=== PATIENT | female | born 1995 ===

== ENCOUNTER → 2020-01-31 | Outpatient (CLI) | payer SELFPAY | END | disposition home or self-care (01) | LOC: LAB SHORT 16:39 → LAB EV 16:39 | DX: Z33.1 Pregnant state, incidental (principal) | CPT/HCPCS: 84702; 86900; 86901 ==

== ENCOUNTER → 2020-03-10 | Outpatient (CLI) | payer OTHER | END | disposition home or self-care (01) | LOC: LAB 14:19 → LAB SHORT 14:19 | PROVIDERS: Advanced Practice Midwife | DX: Z01.419 Encounter for gynecological examination (general) (routine) without abnormal findings (principal) | CPT/HCPCS: G0123 ==

== ENCOUNTER → 2020-05-24 | Outpatient (CLI) | payer OTHER ==
[2020-05-27 12:03] LABS: CHLAMYDIA TRACHOMATIS, NAA Negative (Negative)
== END | disposition home or self-care (01) ==
LOC: LAB 15:53 → LAB SHORT 15:53
PROVIDERS: Advanced Practice Midwife
DX: Z11.3 Encounter for screening for infections with a predominantly sexual mode of transmission (principal)
CPT/HCPCS: 87491; 87591

== ENCOUNTER 2024-01-29 09:08 | Emergency (ER) | payer OTHER ==
[~2024-01-29] VITALS: Ht 144.8 cm; Wt 66.0 kg
[2024-01-29] MEDS ORDERED: ONDA4ODT MM (09:23)
[2024-01-29 09:41] LABS: Source, Urine Clean Catch
[2024-01-29 09:47] LABS: BASOPHILS ABSOLUTE AUTO 0.04 K/mm3 (0.00-0.23); BASOPHILS PERCENT AUTO 1 % (0-2); EOSINOPHILS ABSOLUTE AUTO 0.09 K/mm3 (0.00-0.68); EOSINOPHILS PERCENT AUTO 1 % (0-6); Hematocrit 39.9 % (33.0-51.0); Hemoglobin 13.6 g/dL (11.5-16.0); IMMATURE GRAN ABSOLUTE AUTO 0.03 K/mm3 (0.00-0.10); IMMATURE GRAN PERCENT AUTO 0 % (0-1); LYMPHOCYTES ABSOLUTE AUTO 2.25 K/mm3 (0.84-5.20); LYMPHOCYTES PERCENT AUTO 28 % (21-46); MONOCYTES ABSOLUTE AUTO 0.63 K/mm3 (0.16-1.47); MONOCYTES PERCENT AUTO 8 % (4-13); Mean Corpuscular HGB 29.2 pg (26.0-34.0); Mean Corpuscular HGB Conc 34.1 g/dL (31.5-36.5); Mean Corpuscular Volume 86 fL (80-100); Mean Platelet Volume 10.4 fL (9.1-12.4); NEUTROPHILS ABSOLUTE AUTO 4.98 K/mm3 (1.96-9.15); NEUTROPHILS PERCENT AUTO 62 % (41-73); Platelet Count 229 K/mm3 (150-400); RDW Coefficient Variation 11.7 % (11.7-14.2); RDW Standard Deviation 35.9 fL (35.1-46.3); Red Blood Cell Count 4.66 M/mm3 (3.80-5.20); White Blood Cell Count 8.02 K/mm3 (4.00-11.30)
[2024-01-29 10:09] LABS: Appearance, Urine Clear (Clear); Bilirubin, Urine Neg (Neg); Blood, Urine 3+ (Neg); Glucose Qualitative, Urine Neg (Neg); Ketones, Urine Neg (Neg); Leukocyte Esterase, Urine Neg (Neg); Nitrite, Urine Neg (Neg); Protein, Urine Neg (Neg); Urobilinogen, Urine NORM (Normal)
[2024-01-29 10:09] LABS: Bun/Creatinine Ratio 11.6 (12.0-20.0); Calcium, Blood 8.7 mg/dL (8.5-10.1); Creatinine, Blood 0.52 mg/dL (0.40-1.00); Potassium, Blood 3.5 mmol/L (3.5-5.5)
[2024-01-29 11:04] VITALS: BP 136/78
[2024-01-29] MEDS ORDERED: Acetaminophen 500 MG Tab PO ONE (11:25)
[2024-01-29 11:52] LABS: Color, Urine Yellow (P-Yellow)
[2024-01-29 11:54] LABS: Bacteria Rare /hpf; Squamous Epithelial Cells Rare /hpf (Few); White Blood Cells, Urine 0-2 /hpf (0-5)
[2024-01-29] MEDS ORDERED: ACET500 PO (11:55)
== END 2024-01-29 12:37 | disposition home or self-care (01) ==
LOC: ER 09:08
PROVIDERS: Emergency Medicine
DX: O03.4 Incomplete spontaneous abortion without complication (principal); Z3A.01 Less than 8 weeks gestation of pregnancy
CPT/HCPCS: 76801; 76817; 80048; 81001; 81025; 84702; 84703; 85025; 86900; 86901; 99284-25; A9270

== ENCOUNTER → 2024-02-01 | Outpatient (CLI) | payer OTHER ==
[~2024-02-01] MED LIST: ACET500 PO; ONDA4ODT MM
== END ==
LOC: LAB 18:01 → LAB SHORT 18:01
DX: O36.80X0 Pregnancy with inconclusive fetal viability, not applicable or unspecified (principal)
CPT/HCPCS: 84702

== ENCOUNTER 2024-02-13 12:37 | Day surgery (SDC) | payer OTHER ==
[~2024-02-13] VITALS: Ht 144.8 cm; Wt 66.3 kg
[~2024-02-13 12:37] MED LIST changes: +CeFAZolin Sodium 2,000 MG in NS 100 ML IV SCH; +NS 500 ML IV SCH
--- NOTE | 2024-02-13 13:33 | NUR ---
History, Chart, Medications and Allergies reviewed before start of procedure. Patient confirms NPO status and agrees with scheduled surgery. Pre-Op teaching done. Pt verbalizes understanding. Patient States Post-Procedure ride home has been arranged. Patient confirms NPO status and agrees with scheduled surgery. PT HERE WITH FRIEND THAT SPEAKS [place] WELL. CHARTERED WEALTH MANAGER PHONE USED TO CONFIRM WITH PATIENT THAT SHE FELT COMFORTABLE WITH HER FRIEND TRANSLATING. PER CHARTERED WEALTH MANAGER PT DIDN'T HAVE ANY QUESTIONS REGARDING PROCEDURE AT THIS TIME.
[2024-02-13] MEDS ORDERED: propofoL 20 ML IV ONE (14:15)
[2024-02-13] MEDS ORDERED: FentaNYL Citrate 50 MCG/ML 2 ML Injection ONE (14:15)
[2024-02-13] MEDS ORDERED: Ondansetron HCl 2 MG / ML 2ML Vial ONE (14:28)
[2024-02-13] MEDS ORDERED: Dexamethasone Sod Phos 10 MG/ML 1ML VIAL ONE (14:28)
[2024-02-13] MEDS ORDERED: Ketorolac Tromethamine 30mg Vial ONE (14:28)
[2024-02-13] MEDS ORDERED: Droperidol 5 mg/2 ml Vial IV PRN (14:40)
[2024-02-13] MEDS ORDERED: FentaNYL Citrate 50 MCG/ML 2 ML Injection IV PRN (14:40)
[2024-02-13] MEDS ORDERED: HYDROmorphone HCl/Pf 1MG SYR IV PRN (14:45)
[2024-02-13] MEDS ORDERED: Albuterol 2.5 MG/3 ML VIAL INH PRN (14:50)
[2024-02-13 15:00] VITALS: BP 93/48
[2024-02-13 15:05] VITALS: BP 92/56
[2024-02-13 15:10] VITALS: BP 97/61
[2024-02-13 15:15] VITALS: BP 106/70
[2024-02-13 15:26] VITALS: BP 121/76
[2024-02-13] MEDS ORDERED: OxyCODONE 5 mg/Acetamin 325 mg TABLET PO PRN (15:40)
[2024-02-13] MEDS ORDERED: Ibuprofen 400 MG Tab PO PRN (15:40)
[2024-02-13 15:45] VITALS: BP 112/83
--- NOTE | 2024-02-13 16:05 | NUR ---
Discharge instructions reviewed with patient. Patient verbalizes understanding. Copy given to patient to take home. Scant bleeding on marissa-pad. Prescriptions called into [facility]. Remaining LR admistered. Patient States Post-Procedure ride home has been arranged. Discharged via wheelchair to private car for ride home.
== END 2024-02-13 16:09 | disposition home or self-care (01) ==
LOC: ORSCMMR 12:37 → ORSCSDS 14:00 → ORSCMMR 14:00 → ORD 14:00 → ORSCMMR 16:09
PROVIDERS: Obstetrics & Gynecology
PROC: 10D17ZZ Extraction of Products of Conception, Retained, Via Natural or Artificial Opening (ICD-10-PCS; principal; 2024-02-13 14:00)
DX: O02.1 Missed abortion (principal)
CPT/HCPCS: 86850; 86900; 86901; 88305; J0690; J1100; J1885; J2405; J2704; J3010; J7040

== ENCOUNTER 2024-07-14 10:40 | Emergency (ER) | payer OTHER ==
[~2024-07-14] VITALS: Ht 149.9 cm; Wt 63.5 kg
[~2024-07-14 10:40] MED LIST changes: -CeFAZolin Sodium 2,000 MG in NS 100 ML IV SCH; -NS 500 ML IV SCH
[2024-07-14 10:58] VITALS: BP 128/79
[2024-07-14 11:17] LABS: Source, Urine Clean Catch
[2024-07-14 11:21] LABS: BASOPHILS ABSOLUTE AUTO 0.03 K/mm3 (0.00-0.23); BASOPHILS PERCENT AUTO 0 % (0-2); EOSINOPHILS ABSOLUTE AUTO 0.12 K/mm3 (0.00-0.68); EOSINOPHILS PERCENT AUTO 1 % (0-6); Hematocrit 37.5 % (33.0-51.0); IMMATURE GRAN ABSOLUTE AUTO 0.03 K/mm3 (0.00-0.10); IMMATURE GRAN PERCENT AUTO 0 % (0-1); LYMPHOCYTES ABSOLUTE AUTO 2.48 K/mm3 (0.84-5.20); LYMPHOCYTES PERCENT AUTO 29 % (21-46); MONOCYTES ABSOLUTE AUTO 0.64 K/mm3 (0.16-1.47); MONOCYTES PERCENT AUTO 7 % (4-13); Mean Corpuscular HGB 29.3 pg (26.0-34.0); Mean Corpuscular HGB Conc 34.7 g/dL (31.5-36.5); Mean Corpuscular Volume 85 fL (80-100); Mean Platelet Volume 10.1 fL (9.1-12.4); NEUTROPHILS ABSOLUTE AUTO 5.38 K/mm3 (1.96-9.15); NEUTROPHILS PERCENT AUTO 62 % (41-73); Platelet Count 232 K/mm3 (150-400); RDW Coefficient Variation 11.9 % (11.7-14.2); RDW Standard Deviation 36.4 fL (35.1-46.3); Red Blood Cell Count 4.44 M/mm3 (3.80-5.20); White Blood Cell Count 8.68 K/mm3 (4.00-11.30)
[2024-07-14 11:38] LABS: Appearance, Urine Clear (Clear); Bilirubin, Urine Neg (Neg); Blood, Urine 3+ (Neg); Color, Urine Yellow (P-Yellow); Glucose Qualitative, Urine Neg (Neg); Ketones, Urine Neg (Neg); Leukocyte Esterase, Urine Neg (Neg); Nitrite, Urine Neg (Neg); Protein, Urine Neg (Neg); Specific Gravity, Urine 1.005 (1.003-1.022); Urobilinogen, Urine NORM (Normal)
[2024-07-14 11:58] LABS: Albumin, Blood 3.5 g/dL (3.4-5.0); Bilirubin, Total 0.3 mg/dL (0.1-1.0); Bun/Creatinine Ratio 20.9 (12.0-20.0); Calcium, Blood 8.5 mg/dL (8.5-10.1); Creatinine, Blood 0.48 mg/dL (0.40-1.00); Globulin, Blood 3.6 g/dL (2.2-4.0); Potassium, Blood 3.6 mmol/L (3.5-5.5); Total Protein, Blood 7.1 g/dL (6.4-8.2)
[2024-07-14 12:00] LABS: Bacteria Not Seen /hpf; Squamous Epithelial Cells Few /hpf (Few); White Blood Cells, Urine 0-2 /hpf (0-5)
== END 2024-07-14 15:06 | disposition home or self-care (01) ==
LOC: ER 10:40
PROVIDERS: Physician Assistant
DX: O46.8X1 Other antepartum hemorrhage, first trimester (principal); Z3A.01 Less than 8 weeks gestation of pregnancy; Z79.899 Other long term (current) drug therapy
CPT/HCPCS: 76801; 76817; 80053; 81001; 84702; 85025; 86900; 86901; 99284-25

== ENCOUNTER → 2024-08-29 | Outpatient (CLI) | payer OTHER ==
[2024-09-02 18:43] LABS: C. TRACHOMATIS BY TMA,THINPREP Negative (Negative); N. GONORRHOEAE BY TMA,THINPREP Negative (Negative); SPECIMEN SOURCE Vaginal
== END | disposition home or self-care (01) ==
LOC: LAB SHORT 18:56 → LAB 18:56
PROVIDERS: Family Medicine
DX: Z01.419 Encounter for gynecological examination (general) (routine) without abnormal findings (principal)
CPT/HCPCS: 87491; 87591; G0123

== ENCOUNTER → 2025-02-16 | Outpatient (CLI) | payer OTHER ==
[~2025-02-16] MED LIST changes: +IBUP800 PO; +PRENATAL TABLE1 EAC2 PO
[2025-02-16 23:58] LABS: Creatinine, Urine Random 22.50 mg/dL (27.00-270.00)
[2025-02-17 00:04] LABS: Protein, Urine Random <5.0 mg/dL (0.0-11.9); Protein/Creat Ratio, Ur Random Unable to Calculate
== END ==
LOC: LAB 15:16 → LAB SHORT 15:16
PROVIDERS: Family Medicine
DX: O16.9 Unspecified maternal hypertension, unspecified trimester (principal)
CPT/HCPCS: 82570; 84156

== ENCOUNTER 2025-02-17 06:01 | Inpatient (IN) | payer OTHER ==
[2025-02-17] VITALS (53 sets, daily range): BP systolic 90–171; BP diastolic 55–95
[~2025-02-17] VITALS: Ht 144.8 cm; Wt 70.5 kg
[~2025-02-17 06:01] MED LIST changes: -IBUP800 PO; -PRENATAL TABLE1 EAC2 PO
[2025-02-17] MEDS ORDERED: Ondansetron HCl 2 MG / ML 2ML Vial IV PRN (07:15)
[2025-02-17] MEDS ORDERED: Oxytocin 10 Unit / ML Vial IM PRN (07:15)
[2025-02-17] MEDS ORDERED: Methylergonovine Maleate 0.2MG / ML 1ML Amp IM PRN ×2 (07:15→15:45)
[2025-02-17] MEDS ORDERED: OXYTOCIN/RINGER'S LACTATE 500 ML IV PRN ×2 (07:15→15:50)
[2025-02-17] MEDS ORDERED: Carboprost Tromethamine 250 MCG/ML 1ML Amp IM PRN (07:15)
[2025-02-17] MEDS ORDERED: Tranexamic Acid 100 ML IV SCH (07:15)
[2025-02-17 08:10] LABS: Creatinine, Urine Random 48.6 mg/dL (27.00-270.00); Protein, Urine Random 9.1 mg/dL (0.0-11.9); Protein/Creat Ratio, Ur Random 0.2
[2025-02-17 08:39] LABS: Hematocrit 38.6 % (33.0-51.0); Hemoglobin 13.0 g/dL (11.5-16.0); Mean Corpuscular HGB Conc 33.7 g/dL (31.5-36.5); Mean Corpuscular Volume 87 fL (80-100); NRBC ABSOLUTE 0.00 K/mm3 (0.00-0.02); NRBC Auto 0.0 /100 WBC (0.0-0.2); Platelet Count 114 K/mm3 (150-400); RDW Coefficient Variation 14.3 % (11.7-14.2); RDW Standard Deviation 44.7 fL (35.1-46.3)
[2025-02-17] MEDS ORDERED: ePHEDrine Sulfate 50 MG/ML 1ML Injection XX PRN (08:50)
[2025-02-17] MEDS ORDERED: FentaNYL 2mcg/ml-Bup 0.1% Epd 250 ML EPI PRN (08:50)
[2025-02-17 08:55] LABS: BASOPHILS ABSOLUTE MAN 0.06 K/mm3 (0.00-0.23); BASOPHILS PERCENT MAN 1 % (0-2); EOSINOPHILS ABSOLUTE MAN 0.00 K/mm3 (0.00-0.68); EOSINOPHILS PERCENT MAN 0 % (0-6); LYMPHOCYTES ABSOLUTE MAN 1.62 K/mm3 (0.84-5.20); LYMPHOCYTES PERCENT MAN 24 % (21-46); MONOCYTES ABSOLUTE MAN 0.67 K/mm3 (0.16-1.47); MONOCYTES PERCENT MAN 10 % (4-13); NEUTROPHILS ABSOLUTE MAN 4.40 K/mm3 (1.96-9.15); SEG NEUTROPHILS PERCENT MAN 65 % (41-73)
[2025-02-17 09:07] LABS: Alanine Aminotransfer (ALT/SGP 89.0 U/L (12-78); Albumin, Blood 2.7 g/dL (3.4-5.0); Albumin/Globulin Ratio 0.6 (0.8-1.8); Anion Gap 12.0 mmol/L (3-11); Aspartate Aminotrans (AST/SGOT 40.0 U/L (12-37); Bilirubin, Total 0.5 mg/dL (0.1-1.0); Blood Urea Nitrogen 10.0 mg/dL (8-24); CO2, Blood 22.0 mmol/L (21-32); Calcium, Blood 8.7 mg/dL (8.5-10.1); Chloride, Blood 105.0 mmol/L (98-108); Creatinine, Blood 0.55 mg/dL (0.40-1.00); Globulin, Blood 4.2 g/dL (2.2-4.0); Glucose, Blood 85.0 mg/dL (70-99); Potassium, Blood 3.8 mmol/L (3.5-5.5); Sodium, Blood 135.0 mmol/L (136-145); Total Protein, Blood 6.9 g/dL (6.4-8.2)
[2025-02-17] MEDS ORDERED: Labetalol HCL 5 MG/ML 4ML Injection (Single Dose) IV ONE (14:35)
[2025-02-17] MEDS ORDERED: Labetalol HCL 5 MG/ML 4ML Injection (Single Dose) IV PRN ×2 (14:40)
[2025-02-17] MEDS ORDERED: Magnesium Sul 4 GM/Water100 ML 100 ML IV ONE (14:40)
[2025-02-17] MEDS ORDERED: FLU VACC TS2025-26(6MOS UP)/PF 45 MCG/0.5 ML SYRINGE IM SCH (15:45)
[2025-02-17] MEDS ORDERED: Benzocaine Topical Anesthetic Spray 60GM TOP PRN (15:45)
[2025-02-17] MEDS ORDERED: Witch Hazel/Glycerin PADS TOP PRN (15:50)
[2025-02-17 16:47] LABS: Source, Urine Foley catheter
[2025-02-17 17:01] LABS: Bilirubin, Urine Neg (Neg); Color, Urine Yellow (P-Yellow); Glucose Qualitative, Urine Neg (Neg); Ketones, Urine Neg (Neg); Leukocyte Esterase, Urine 1+ (Neg); Protein, Urine 1+ (Neg); Specific Gravity, Urine 1.010 (1.003-1.022); Urobilinogen, Urine NORM (Normal)
[2025-02-17] MEDS ORDERED: Ketorolac Tromethamine 30mg Vial IV PRN (20:15)
--- NOTE | 2025-02-17 22:15 | NUR ---
Assumed care at change of shift, patient limited [place] speaking, has interperter phone in the room, but declines desire to use, partner fluent [place] speaker providing translation when patient doesnt understand. Patient on magnesium for preeclampsia with severe features, protocol followed as ordered. Bedrest at this time with mendenhall catheter draining clear yellow urine, SCDs in place, LCTA, trace edema to RLE at this time. Patient makes wants and needs known, responding appropriately to newborns needs. No concerns at this time.
[2025-02-18] VITALS (11 sets, daily range): BP systolic 112–145; BP diastolic 69–93
[2025-02-18] MEDS ORDERED: Prenatal Vit/FE Fumarate/FA 1 Tab PO SCH (09:00)
[2025-02-18] MEDS ORDERED: IBUP800 PO (16:23)
[2025-02-18] MEDS ORDERED: PRENATAL TABLE1 EAC2 PO (16:24)
--- NOTE | 2025-02-18 18:04 | NUR ---
LABETOLOL 200MB BID ORDER D/C'D BY DR MAURICE. PLAN IS TO SEE HOW BP DOES OVER NIGHT. SHE WAS CONCERNED ABOUT BP DROPPING TOO LOW FROM PT BASELINE WHEN IT WAS 110'S/70'S THIS AM. NOTIFIED THAT BP HAS BEEN 130'S/80'S TODAY. IF BP START CLIMBING, RN TO CALL [facility] WHO IS [employer] MA[employer]GER MATTHEW AND THEY WILL LIKELY RESTART 100MG OF LABETOLOL, NOT 200MG.
[2025-02-19 00:31] VITALS: BP 107/63
[2025-02-19 07:52] VITALS: BP 128/67
[2025-02-19 11:27] VITALS: BP 129/60
== END 2025-02-19 11:55 | disposition home or self-care (01) | DRG 806 ==
LOC: OBS 06:01 → BC 06:03 → OBS 06:06 → BC 06:08
PROVIDERS: ADMIT Family Medicine
PROC: 10E0XZZ Delivery of Products of Conception, External Approach (ICD-10-PCS; principal; 2025-02-17)
PROC: 10907ZC Drainage of Amniotic Fluid, Therapeutic from Products of Conception, Via Natural or Artificial Opening (ICD-10-PCS; 2025-02-17)
PROC: 4A1HXCZ Monitoring of Products of Conception, Cardiac Rate, External Approach (ICD-10-PCS; 2025-02-17)
PROC: 00HU33Z Insertion of Infusion Device into Spinal Canal, Percutaneous Approach (ICD-10-PCS; 2025-02-17)
PROC: 3E0R3BZ Introduction of Anesthetic Agent into Spinal Canal, Percutaneous Approach (ICD-10-PCS; 2025-02-17)
DX: O24.424 Gestational diabetes mellitus in childbirth, insulin controlled (principal); O26.643 Intrahepatic cholestasis of pregnancy, third trimester; Z37.0 Single live birth; Z3A.37 37 weeks gestation of pregnancy; K76.89 Other specified diseases of liver; O99.02 Anemia complicating childbirth; D50.9 Iron deficiency anemia, unspecified; O14.14 Severe pre-eclampsia complicating childbirth; O99.214 Obesity complicating childbirth
CPT/HCPCS: 80053; 81001; 82570; 82947; 84156; 85025; 86850; 86900; 86901; 86923; 87086; A9270; J1885; J2405; J2590; J3475; J7120